=== PATIENT | male | born 1970 | race Two or more races ===

== ENCOUNTER 2018-04-20 22:29 | Emergency (ER) | payer MEDICAID ==
[~2018-04-20] VITALS: Ht 172.7 cm; Wt 79.4 kg
[2018-04-20] MEDS ORDERED: NKM (22:37)
[2018-04-20 22:40] VITALS: BP 127/81
--- NOTE | 2018-04-20 22:40 | NUR ---
ED Nurse Note: Pt was brought in ED by Ambulance from home. C/O ETOH . Pt is drowsy at this time. Hr 112. Dr. Figueroa at bed side. Waiting for orders.
--- NOTE | 2018-04-20 22:45 | Emergency Room Report ---
History of Present Illness General Chief Complaint: Alcohol Intoxication Source: EMS (Clari Figueroa DO) Present Illness HPI Patient is brought in by paramedics with reports of alcohol abuse They report that the significant other of the patient presented to find the patient altered alcohol bottles around him and paramedics were summoned here patient opens his eyes however Does not answer questions Has his hands crossed on his chest There was no reports of vomiting or trauma at the scene There has been some questionable reported alcohol abuse in the past (Clari Figueroa DO) Allergies: Coded Allergies: No Known Allergies (Unverified , 04/20/18) Patient History Limited by: medical condition Past Medical History: see triage record Pertinent Family History: unable to obtain Reviewed Nursing Documentation: PMH: Agreed; PSxH: Agreed (Clari Figueroa DO) Nursing Documentation-PMH History Of Psychiatric Problem: Yes - ETOH Abuse (Clari Figueroa DO) Review of Systems All Other Systems: limited - Other than the ones mentioned in the history of present illness all others are reviewed however they do stay limited due to the patient's mental status (Clari Figueroa DO) Physical Exam Vital Signs Date Time Temp Pulse Resp B/P (MAP) Pulse Ox O2 Delivery O2 Flow Rate FiO2 04/20/18 22:31 98.6 102 16 136/82 98 Room Air Sp02 EP Interpretation: reviewed, normal General Appearance: no apparent distress - Appears mildly flushed Head: normocephalic, atraumatic Eyes: bilateral eye PERRL, bilateral eye EOMI ENT: hearing grossly normal, normal pharynx, TMs + canals normal, uvula midline Neck: full range of motion, supple, no meningismus, no bony tend Respiratory: lungs clear, normal breath sounds, no rhonchi, no respiratory distress, no retraction, no accessory muscle use Cardiovascular #1: normal peripheral pulses, regular rate, rhythm, no edema, no gallop, no JVD, no murmur Gastrointestinal: normal bowel sounds, non tender, soft, no mass, no organomegaly, non-distended, no guarding, no hernia, no pulsatile mass, no rebound Genitourinary: no CVA tenderness Musculoskeletal: normal inspection Neurologic: responsive, sensory intact Skin: normal color, no rash, warm/dry, palpation normal Lymphatic: normal inspection, no adenopathy (Clari Figueroa DO) Medical Decision Making Diagnostic Impression: Primary Impression: Acute alcoholic intoxication ER Course Multiple differentials considered Patient had extensive blood work initiated initially CT head was also ordered however the patient has become more arousable and refusing CT imaging Blood work reveals alcohol level which is significantly increased marijuana is also positive Family is being contacted patient is further medically stabilized and cleared Requiring close outpatient follow-up Labs Test 04/20/18 23:43 04/21/18 00:17 White Blood Count 13.7 K/UL (4.8-10.8) Red Blood Count 5.15 M/UL (4.70-6.10) Hemoglobin 17.2 G/DL (14.2-18.0) Hematocrit 48.2 % (42.0-52.0) Mean Corpuscular Volume 94 FL (80-99) Mean Corpuscular Hemoglobin 33.4 PG (27.0-31.0) Mean Corpuscular Hemoglobin Concent 35.7 G/DL (32.0-36.0) Red Cell Distribution Width 11.9 % (11.6-14.8) Platelet Count 219 K/UL (150-450) Mean Platelet Volume 6.2 FL (6.5-10.1) Neutrophils (%) (Auto) 68.7 % (45.0-75.0) Lymphocytes (%) (Auto) 21.4 % (20.0-45.0) Monocytes (%) (Auto) 9.3 % (1.0-10.0) Eosinophils (%) (Auto) 0.1 % (0.0-3.0) Basophils (%) (Auto) 0.5 % (0.0-2.0) Sodium Level 137 MMOL/L (136-145) Potassium Level 3.8 MMOL/L (3.5-5.1) Chloride Level 96 MMOL/L (98-107) Carbon Dioxide Level 27 MMOL/L (21-32) Anion Gap 14 mmol/L (5-15) Blood Urea Nitrogen 17 mg/dL (7-18) Creatinine 0.8 MG/DL (0.55-1.30) Estimat Glomerular Filtration Rate > 60 mL/min (>60) Glucose Level 105 MG/DL (74-106) Calcium Level 8.2 MG/DL (8.5-10.1) Total Bilirubin 0.5 MG/DL (0.2-1.0) Aspartate Amino Transf (AST/SGOT) 34 U/L (15-37) Alanine Aminotransferase (ALT/SGPT) 30 U/L (12-78) Alkaline Phosphatase 69 U/L (46-116) Total Protein 7.2 G/DL (6.4-8.2) Albumin 3.6 G/DL (3.4-5.0) Globulin 3.6 g/dL Albumin/Globulin Ratio 1.0 (1.0-2.7) Lipase 216 U/L (73-393) Serum Alcohol 411 mg/dL Urine Opiates Screen Negative (NEGATIVE) Urine Barbiturates Screen Negative (NEGATIVE) Phencyclidine (PCP) Screen Negative (NEGATIVE) Urine Amphetamines Screen Negative (NEGATIVE) Urine Benzodiazepines Screen Negative (NEGATIVE) Urine Cocaine Screen Negative (NEGATIVE) Urine Marijuana (THC) Screen Positive (NEGATIVE) (Clari Figueroa DO) ER Course Upon reevaluation, patient is speaking clearly with a very clear sensorium, admits to being on a drinking binge for at least a week now after having an argument with his girlfriend he lives, is able to walk clearly, is still slightly tachycardic, on my heart exam he has no murmurs rubs or gallops, on the monitor his heart rate is sinus rhythm narrow complex rate 118 no obvious PVCs or any abnormalities, satting 98% on room air, his blood pressures normal, he has no tremor, I do not suspect severe withdrawal given the lack of the above -mentioned findings, only a slight sinus tachycardia, he was given thiamine, folate, IV normal saline, 1mg ativan, and will be discharged. Diagnosis acute alcohol intoxication. (SULEIMAN STOREY M.D) EKG Diagnostic Results EKG Time: 09:13 EP Interpretation: no st-t changes, no twi's, normal qtc 441ms, sinus tachycardia rate 110 Rate: tachycardiac Rhythm: NSR ST Segments: no acute changes ASA given to the pt in ED: No (SULEIMAN STOREY M.D) Rhythm Strip Diag. Results Rhythm Strip Time: 09:30 EP Interpretation: yes Rate: 96 Rhythm: NSR, no PVC's, no ectopy (SULEIMAN STOREY M.D) Last Vital Signs Date Time Temp Pulse Resp B/P (MAP) Pulse Ox O2 Delivery O2 Flow Rate FiO2 04/20/18 22:31 98.6 102 16 136/82 98 Room Air Status: improved (Clari Figueroa DO) Reevaluation Time: 09:30 HR< 100bpm, sinus on monitor, BP normal, sensorium clear, no tremor, able to ambulate, will dc Status: improved (SULEIMAN STOREY M.D) Disposition: HOME, SELF-CARE Condition: Improved Additional Instructions: Patient is provided with the discharge instructions notified to follow up with primary doctor in the next 2-3 days otherwise return to the er with any worsening symptoms. Please note that this report is being documented using fintonic technology. This can lead to erroneous entry secondary to incorrect interpretation by the dictating instrument. Clari Figueroa DO Apr 20, 2018 22:45 SULEIMAN STOREY M.D Apr 21, 2018 09:13
[2018-04-20 23:57] LABS: BASOPHILS % (AUTO) 0.5 % (0.0-2.0); EOSINOPHILS % (AUTO) 0.1 % (0.0-3.0); HEMATOCRIT 48.2 % (42.0-52.0); HEMOGLOBIN 17.2 G/DL (14.2-18.0); LYMPHOCYTES % (AUTO) 21.4 % (20.0-45.0); MEAN CORPUSCULAR VOLUME 94 FL (80-99); MONOCYTES % (AUTO) 9.3 % (1.0-10.0); NEUTROPHILS % (AUTO) 68.7 % (45.0-75.0); PLATELET COUNT 219 K/UL (150-450); RED BLOOD COUNT 5.15 M/UL (4.70-6.10); RED CELL DISTRIBUTION WIDTH 11.9 % (11.6-14.8); WHITE BLOOD COUNT 13.7 K/UL (4.8-10.8)
[2018-04-21 00:05] LABS: ANION GAP 14 mmol/L (5-15); BLOOD UREA NITROGEN 17 mg/dL (7-18); CALCIUM 8.2 MG/DL (8.5-10.1); CARBON DIOXIDE 27 MMOL/L (21-32); CHLORIDE 96 MMOL/L (98-107); CREATININE 0.8 MG/DL (0.55-1.30); POTASSIUM 3.8 MMOL/L (3.5-5.1); SODIUM 137 MMOL/L (136-145)
[2018-04-21 00:12] LABS: ALANINE AMINOTRANSFERASE 30 U/L (12-78); ALBUMIN 3.6 G/DL (3.4-5.0); ALKALINE PHOSPHATASE 69 U/L (46-116); ASPARTATE AMINO TRANSFERASE 34 U/L (15-37); BILIRUBIN,TOTAL 0.5 MG/DL (0.2-1.0)
--- NOTE | 2018-04-21 06:20 | NUR ---
ED Nurse Note: Called pt's girl friend / [phone] Mechelle, left massage.
--- NOTE | 2018-04-21 06:20 | NUR ---
ED Nurse Note: CT of head was cancelled by Dr. Figueroa.
--- NOTE | 2018-04-21 07:30 | NUR ---
HAND-OFF: Report given to Debi/ Patrick/BECKA for continue care.Pt is A/O X4. Provided 3 cups of water and 2 cups of juice and one sandwich.
--- NOTE | 2018-04-21 07:32 | NUR ---
ED Nurse Note: received report from matt fish pt is still tachycardiac. resting in bed. pt asked for water. no signs of pain or distress.
[2018-04-21 07:35] VITALS: BP 123/74
--- NOTE | 2018-04-21 08:22 | NUR ---
ED Nurse Note: per pt "please call my gf", called pt's girlfriend [phone] Mechelle, arabella fox.
[2018-04-21 08:27] VITALS: BP 118/73
--- NOTE | 2018-04-21 08:36 | NUR ---
ED Nurse Note: pt used the restroom. pt is ao x4 with steady gait. pt follows commands.
--- NOTE | 2018-04-21 09:00 | NUR ---
ED Nurse Note: pt was offered food and juice.
[2018-04-21] MEDS ORDERED: LORazepam Inj 2mg/ml 1ml IV ONE (09:15)
[2018-04-21] MEDS ORDERED: Thiamine 100mg tab ORAL ONE (09:15)
[2018-04-21 09:35] VITALS: BP 135/66
[2018-04-21 10:30] VITALS: BP 116/59
--- NOTE | 2018-04-21 10:30 | NUR ---
ED Nurse Note: pt is d/c per ermd order. pt is aox4, with steady gait. pt was provided tap card to utilize to take him to address he provided. pt d/c instructions given. pt verbalized understanding. pt took all belongings. pt id band removed and iv site discontinued without complication.
--- NOTE | 2018-04-22 16:26 | Cardiology Report ---
APPROVED REPORT EKG Measurement Heart [id number] [place] [id number] [id number] Sinus tachycardia Nonspecific T wave abnormality Abnormal ECG
== END 2018-04-21 10:30 | disposition home or self-care (01) ==
LOC: EDBD 22:29 → EMR 23:00
DX: F10.129 Alcohol abuse with intoxication, unspecified (principal)
CPT/HCPCS: 36415; 80053; 80307; 80329; 83690; 85025; 93005; 99284